=== PATIENT | male | born 1960 | race Caucasian/White ===

== ENCOUNTER 2024-03-09 09:37 | Inpatient (IN) ==
[2024-03-09] MEDS ORDERED: IOPAMIDOL 100 ML BOTTLE IV ONE (09:38)
[2024-03-09] MEDS: IPRATROPIUM/ALBUTEROL 3 ML AMPUL.NEB NEB ONE ×2 (10:05→10:16)
[2024-03-09 10:27] LABS: Basophils # (Auto) 0.01 K/mcL (0.00-0.30); Basophils % (Auto) 0.1 % (0.0-2.0); Eosinophils # (Auto) 0.05 K/mcL (0.00-0.70); Eosinophils % (Auto) 0.5 % (0.0-7.0); Hemoglobin 15.3 g/dL (13.7-17.5); Lymphocytes % (Auto) 15.4 % (15.5-49.0); Mean Cell Volume 101.1 fL (80.0-100.0); Mean Platelet Volume 10.1 fL (8.8-12.5); Monocytes # (Auto) 1.61 K/mcL (0.10-0.90); Monocytes % (Auto) 15.5 % (1.0-12.0); Neutrophils % (Auto) 63.6 % (38.0-78.0); Platelet Count 132 K/mcL (140-440); RBC 4.45 M/mcL (4.63-6.08); Red Cell Distribution Width 12.4 % (11.5-14.5); WBC 10.4 K/mcL (4.5-11.0)
[2024-03-09 10:49] LABS: ALT/SGPT 168 U/L (<40); AST/SGOT 60 U/L (<40); Albumin 3.8 gm/dL (3.2-5.2); Albumin/Globulin Ratio 1.8 (1.0-2.3); Alkaline Phosphatase 104 U/L (39-117); Bilirubin,Total 0.8 mg/dL (0.1-1.0); Blood Urea Nitrogen 12 mg/dL (8-23); Calcium 9.2 mg/dL (8.6-10.4); Carbon Dioxide 24 mmol/L (22-30); Chloride 98 mmol/L (96-108); Globulin 2.1 gm/dL (2.2-3.7); Glomerular Filtration Rate 106; Glucose 117 mg/dL (70-105); Sodium 134 mmol/L (133-145)
[2024-03-09] MEDS: cefTRIAXone 2 GM in DEXTROSE 5% IN WATER 50 ML IV ONE (11:22)
[2024-03-09] MEDS: methylPREDNISolone SOD SUCC 125 MG/2 ML VIAL IV ONE (11:22)
[2024-03-09] MEDS: AZITHROMYCIN 500 MG in DEXTROSE 5% IN WATER 250 ML IV ONE (11:48)
[2024-03-09] MEDS ORDERED: ACETAMINOPHEN 325 MG TABLET PO PRN (15:37)
[2024-03-09] MEDS ORDERED: traZODone HCL 50 MG TABLET PO PRN (15:37)
[2024-03-09] MEDS: NICOTINE 21 MG PATCH TOPICAL SCH (15:48)
[2024-03-09] MEDS: 0.9 % SODIUM CHLORIDE 1,000 ML IV SCH (15:49)
[2024-03-09] MEDS: IPRATROPIUM/ALBUTEROL 3 ML AMPUL.NEB NEB SCH (15:50)
[2024-03-09] MEDS: oxyCODONE IR 5 MG TABLET PO PRN (19:07)
[2024-03-09] MEDS: SENNOSIDES 1 TABLET PO SCH (20:24)
[2024-03-09] MEDS: DOCUSATE SODIUM 100 MG CAPSULE PO SCH (20:24)
[2024-03-09] MEDS: 0.9 % SODIUM CHLORIDE 10 ML SYRINGE IV SCH (20:30)
[2024-03-10] MEDS: guaiFENesin/DEXTROMETHORPHAN 5ML UD CUP PO PRN (00:33)
[2024-03-10] MEDS: ONDANSETRON 4 MG/2 ML VIAL IV PRN (00:35)
[2024-03-10 06:39] LABS: Basophils # (Auto) 0.01 K/mcL (0.00-0.30); Basophils % (Auto) 0.1 % (0.0-2.0); Eosinophils # (Auto) 0 K/mcL (0.00-0.70); Eosinophils % (Auto) 0 % (0.0-7.0); Hematocrit 39.5 % (40.1-51.0); Hemoglobin 13.3 g/dL (13.7-17.5); Lymphocytes # (Auto) 0.75 K/mcL (1.50-4.80); Lymphocytes % (Auto) 7.5 % (15.5-49.0); Mean Cell Volume 103.4 fL (80.0-100.0); Mean Corpuscular HGB Conc 33.7 g/dL (31.0-36.0); Monocytes # (Auto) 1.13 K/mcL (0.10-0.90); Monocytes % (Auto) 11.3 % (1.0-12.0); Neutrophils % (Auto) 78.4 % (38.0-78.0); Platelet Count 107 K/mcL (140-440); RBC 3.82 M/mcL (4.63-6.08); Red Cell Distribution Width 12.7 % (11.5-14.5)
[2024-03-10 06:55] LABS: ALT/SGPT 125 U/L (<40); AST/SGOT 40 U/L (<40); Albumin 3.3 gm/dL (3.2-5.2); Albumin/Globulin Ratio 1.4 (1.0-2.3); Alkaline Phosphatase 95 U/L (39-117); Bilirubin,Total 0.3 mg/dL (0.1-1.0); Blood Urea Nitrogen 14 mg/dL (8-23); Calcium 9.2 mg/dL (8.6-10.4); Carbon Dioxide 24 mmol/L (22-30); Chloride 102 mmol/L (96-108); Globulin 2.4 gm/dL (2.2-3.7); Glomerular Filtration Rate 99; Glucose 280 mg/dL (70-105); Potassium 4.2 mmol/L (3.3-5.1); Sodium 136 mmol/L (133-145)
[2024-03-10] MEDS: predniSONE 20 MG TABLET PO SCH (08:33)
[2024-03-10] MEDS: cefTRIAXone 1 GM VIAL IV SCH (08:33)
[2024-03-10] MEDS: ENOXAPARIN 40 MG/0.4 ML SYRINGE SQ SCH (08:37)
[2024-03-10] MEDS: AZITHROMYCIN 500 MG in 0.9 % SODIUM CHLORIDE 250 ML IV SCH (10:06)
[2024-03-10] MEDS ORDERED: oxyCODONE IR 5 MG TABLET PO PRN (10:45)
[2024-03-10] MEDS ORDERED: ALBUTEROL SULFATE 60 PUFF INHALER INH PRN (10:45)
[2024-03-11 06:12] LABS: Basophils # (Auto) 0.01 K/mcL (0.00-0.30); Basophils % (Auto) 0.1 % (0.0-2.0); Eosinophils # (Auto) 0.03 K/mcL (0.00-0.70); Eosinophils % (Auto) 0.2 % (0.0-7.0); Hematocrit 39.7 % (40.1-51.0); Hemoglobin 13.4 g/dL (13.7-17.5); Lymphocytes % (Auto) 12.3 % (15.5-49.0); Mean Cell Volume 103.9 fL (80.0-100.0); Mean Corpuscular HGB Conc 33.8 g/dL (31.0-36.0); Mean Platelet Volume 10.6 fL (8.8-12.5); Monocytes # (Auto) 2.17 K/mcL (0.10-0.90); Monocytes % (Auto) 11.6 % (1.0-12.0); Neutrophils % (Auto) 73.2 % (38.0-78.0); Platelet Count 143 K/mcL (140-440); RBC 3.82 M/mcL (4.63-6.08); WBC 18.6 K/mcL (4.5-11.0)
[2024-03-11 06:12] LABS: ALT/SGPT 121 U/L (<40); AST/SGOT 58 U/L (<40); Albumin 3.2 gm/dL (3.2-5.2); Albumin/Globulin Ratio 1.3 (1.0-2.3); Alkaline Phosphatase 154 U/L (39-117); Bilirubin,Total 0.3 mg/dL (0.1-1.0); Blood Urea Nitrogen 17 mg/dL (8-23); Carbon Dioxide 26 mmol/L (22-30); Chloride 106 mmol/L (96-108); Globulin 2.4 gm/dL (2.2-3.7); Glomerular Filtration Rate 106; Glucose 94 mg/dL (70-105); Sodium 141 mmol/L (133-145)
[2024-03-11] MEDS: AZITHROMYCIN 250 MG TABLET PO SCH (08:51)
[2024-03-11] MEDS: FOLIC ACID 1 MG TABLET PO SCH (08:51)
[2024-03-11] MEDS: MULTIVIT,THER IRON,CA,FA & MIN 1 TABLET PO SCH (08:52)
== END 2024-03-11 10:30 | disposition home or self-care (01) | DRG 193 ==
LOC: ED 09:37 → MEDSUR 15:27
PROVIDERS: ADMIT Internal Medicine; ATTEND Internal Medicine